=== PATIENT | female | born 1965 | race Caucasian/White ===

== ENCOUNTER 2021-05-23 13:41 | Outpatient (CLI) | payer OTHER ==
[2021-05-23 23:49] LABS: SARS-CoV-2 PCR by NAA Not Detected (NotDetected)
== END 2021-05-23 13:42 | disposition home or self-care (01) ==
LOC: CSHLAB 13:41
PROVIDERS: ATTEND Internal Medicine Critical Care Medicine
DX: Z20.822 Contact with and (suspected) exposure to COVID-19 (principal)
CPT/HCPCS: U0003; U0005

== ENCOUNTER 2021-07-14 19:57 | Inpatient (IN) | payer OTHER ==
[2021-07-14 20:41] LABS: #Eosinphils 0.2 10x3/uL (0.0-0.5); #Monocytes 0.5 10x3/uL (0.0-1.1); #Neutrophils 6.9 10x3/uL (1.5-8.4); %Basophils 0.4 % (0.0-2.0); %Lymphocytes 17.3 % (18.0-47.0); %Monocytes 5.7 % (0.0-10.0); %Neutrophils 74.4 % (40.0-75.0); Hemoglobin 14.2 g/dL (12.0-15.5); Mean Corpuscular HGB CONC 31.3 g/dL (32.0-36.0); Mean Corpuscular Hemoglobin 29.8 pg (27.0-33.0); Mean Platelet Volume 7.8 fl (7.4-10.4); Platelet Count 374 10x3/uL (150-450); RBC Distribution Width 13.1 % (11.5-14.5); Red Blood Cell (RBC) Count 4.77 10x6/uL (3.90-5.03); White Blood Cell (WBC) Count 9.2 10x3/uL (3.5-10.5)
[2021-07-14] MEDS ORDERED: Dexamethasone 10 MG/ML VIAL ONE (20:53)
[2021-07-14 20:54] LABS: ALT (SGPT) 10 U/L (8-55); AST (SGOT) 16 U/L (5-34); Albumin 3.8 g/dL (3.5-5.0); Alkaline Phosphatase 96 U/L (40-110); Anion Gap 15 mmol/L (10-20); BUN (Urea Nitrogen) 8 mg/dL (9.8-20.1); Bilirubin, Total 0.4 mg/dL (0.2-1.2); Calc. Creatinine Clearance 0 mL/min (70-130); Calcium 9.3 mg/dL (7.8-10.44); Carbon Dioxide 31 mmol/L (22-29); Chloride 102 mmol/L (98-107); Globulin 3.1 g/dL (2.4-3.5); Glucose 102 mg/dL (70-105); Potassium 4.2 mmol/L (3.5-5.1); Protein, Total 6.9 g/dL (6.0-8.3); Sodium 144 mmol/L (136-145)
[2021-07-14] MEDS ORDERED: Magnesium 2 GM/50 ML BAG (IN WATER) ONE (20:54)
[2021-07-14 21:25] LABS: SARS-CoV-2 NAA Rapid Test Not Detected (NotDetected)
[2021-07-14 22:14] LABS: Actual Bicarbonate (HCO3v) 31 mEq/L (22-28); Base Excess 2.5 mEq/L (-2.0 to +3.0); Calcium, Ionized (venous) 1.12 mmol/L (1.16-1.32); Chloride (VBG) 103 mmol/L (98-106); Hemoglobin (Hb) 14.5 g/dL (11.7-16.0); Potassium (VBG) 4.19 mmol/L (3.70-5.30); Puncture Site Other Site; RapidComm Collect By CSUC.CNC; Sodium 140.2 mmol/L (133-146); pH (venous) 7.31 (7.32-7.43)
[2021-07-14] MEDS ORDERED: Azithromycin 500 MG VIAL ONE (22:33)
[2021-07-14] MEDS ORDERED: cefTRIAXone\\ROCEPHIN 2 GM VIAL ONE (22:33)
[2021-07-14 23:27] LABS: Actual Bicarbonate (HCO3a) 26.8 mEq/L (22-28); Base Excess (BEa) 0.3 mEq/L (-2.0 to +3.0); CO2 Tension 50.2 mmHg (35.0-45.0); Calcium, Ionized (arterial) 1.18 mmol/L (1.12-1.30); Carboxyhemoglobin (COHb) 1.2 gm% (0.0-3.0); Hemoglobin (Hb) 14.6 g/dL (12.0-16.0); O2 Tension (PaO2), arterial 72.8 mmHg (80.0-100.0); Potassium - ABG Lab 4.2 mmol/L (3.70-5.30); Puncture Site RRA; pH, Arterial 7.35 (7.35-7.45)
[2021-07-15] MEDS ORDERED: Morphine 4 MG/ML VIAL ONE (00:38)
[2021-07-15 00:44] LABS: Troponin I 0.021 ng/mL (< 0.028)
[2021-07-15 01:33] VITALS: BMI 55.5
[2021-07-15 03:42] LABS: Troponin I Less than 0.010 ng/mL (< 0.028)
[2021-07-15] MEDS: methylPREDNISolone Sod Succ 40 MG VIAL IVP SCH ×4 (05:26→23:40)
[2021-07-15] MEDS: Sodium Chloride 0.9% 1,000 ML IV SCH ×2 (05:31→17:21)
[2021-07-15] MEDS: Budesonide 0.25 MG/2 ML NEB INH SCH ×2 (05:45→19:55)
[2021-07-15] MEDS: Arformoterol 15 MCG/2 ML NEB NEB SCH ×2 (05:45→19:55)
[2021-07-15 06:02] LABS: #Monocytes 0.2 10x3/uL (0.0-1.1); #Neutrophils 7.5 10x3/uL (1.5-8.4); %Basophils 0.2 % (0.0-2.0); %Lymphocytes 10.3 % (18.0-47.0); %Monocytes 2.2 % (0.0-10.0); %Neutrophils 86.8 % (40.0-75.0); Hemoglobin 13.6 g/dL (12.0-15.5); Mean Corpuscular HGB CONC 31.9 g/dL (32.0-36.0); Mean Corpuscular Hemoglobin 29.9 pg (27.0-33.0); Mean Corpuscular Volume 93.8 fl (81.6-98.3); Mean Platelet Volume 8.2 fl (7.4-10.4); Platelet Count 386 10x3/uL (150-450); RBC Distribution Width 13.2 % (11.5-14.5); Red Blood Cell (RBC) Count 4.55 10x6/uL (3.90-5.03); White Blood Cell (WBC) Count 8.6 10x3/uL (3.5-10.5)
[2021-07-15 06:16] LABS: Actual Bicarbonate (HCO3a) 25.8 mEq/L (22-28); Base Excess (BEa) 0.1 mEq/L (-2.0 to +3.0); CO2 Tension 45.7 mmHg (35.0-45.0); Calcium, Ionized (arterial) 1.19 mmol/L (1.12-1.30); Carboxyhemoglobin (COHb) 1.3 gm% (0.0-3.0); Hemoglobin (Hb) 13.7 g/dL (12.0-16.0); O2 Tension (PaO2), arterial 64.2 mmHg (80.0-100.0); Potassium - ABG Lab 4.4 mmol/L (3.70-5.30); Puncture Site RRA; pH, Arterial 7.37 (7.35-7.45)
[2021-07-15 07:31] LABS: Anion Gap 17 mmol/L (10-20); BUN (Urea Nitrogen) 10 mg/dL (9.8-20.1); Calc. Creatinine Clearance 197 mL/min (70-130); Calcium 8.8 mg/dL (7.8-10.44); Carbon Dioxide 28 mmol/L (22-29); Chloride 103 mmol/L (98-107); Glucose 149 mg/dL (70-105); Magnesium 2.3 mg/dL (1.6-2.6); Potassium 4.6 mmol/L (3.5-5.1); Sodium 143 mmol/L (136-145)
[2021-07-15] MEDS: Gabapentin 300 MG CAP PO SCH ×3 (09:13→20:36)
[2021-07-15] MEDS: Aspirin 81 mg Enteric Coated Tablet PO SCH (09:14)
[2021-07-15] MEDS: Enoxaparin Sodium 40 MG/0.4 ML SYRINGE SC SCH (09:14)
[2021-07-15] MEDS: Atorvastatin Calcium 10 MG TAB PO SCH (09:22)
[2021-07-15 14:04] LABS: ALV-art Gradient 106.835 mmHg (0-20)
[2021-07-15] MEDS: HYDROcodone/Acetaminophen 10/325 mg Tablet PO PRN ×2 (14:29→20:38)
[2021-07-15] MEDS: ALPRAZolam 0.5 MG TAB PO SCH (20:36)
[2021-07-15] MEDS: traZODone HCl 50 MG TAB PO SCH (20:37)
[2021-07-15] MEDS: Nystatin Powder 15 GM BOT TOP SCH (20:37)
[2021-07-15] MEDS: cefTRIAXone\\ROCEPHIN 2 GM in Sodium Chloride 0.9% 100 ML IVPB SCH (21:21)
[2021-07-15] MEDS: Azithromycin 500 MG in Sodium Chloride 0.9% 250 ML 250 ML IVPB SCH (23:40)
[2021-07-16] MEDS: methylPREDNISolone Sod Succ 40 MG VIAL IVP SCH ×3 (06:04→17:11)
[2021-07-16] MEDS: Budesonide 0.25 MG/2 ML NEB INH SCH ×2 (07:30→20:42)
[2021-07-16] MEDS: Arformoterol 15 MCG/2 ML NEB NEB SCH ×2 (07:40→20:41)
[2021-07-16 08:38] LABS: #Monocytes 0.3 10x3/uL (0.0-1.1); #Neutrophils 11.4 10x3/uL (1.5-8.4); %Basophils 0.1 % (0.0-2.0); %Eosinophils 0.2 % (0.0-6.0); %Lymphocytes 7.2 % (18.0-47.0); %Monocytes 2.1 % (0.0-10.0); %Neutrophils 89.7 % (40.0-75.0); Hemoglobin 13.6 g/dL (12.0-15.5); Mean Corpuscular HGB CONC 33.2 g/dL (32.0-36.0); Mean Corpuscular Volume 90.3 fl (81.6-98.3); Mean Platelet Volume 8.4 fl (7.4-10.4); Platelet Count 402 10x3/uL (150-450); RBC Distribution Width 13.2 % (11.5-14.5); Red Blood Cell (RBC) Count 4.54 10x6/uL (3.90-5.03); White Blood Cell (WBC) Count 12.5 10x3/uL (3.5-10.5)
[2021-07-16 08:48] LABS: Anion Gap 15 mmol/L (10-20); BUN (Urea Nitrogen) 13 mg/dL (9.8-20.1); Calc. Creatinine Clearance 202 mL/min (70-130); Carbon Dioxide 23 mmol/L (22-29); Chloride 105 mmol/L (98-107); Glucose 136 mg/dL (70-105); Potassium 4.4 mmol/L (3.5-5.1); Sodium 139 mmol/L (136-145)
[2021-07-16] MEDS: Aspirin 81 mg Enteric Coated Tablet PO SCH (09:38)
[2021-07-16] MEDS: HYDROcodone/Acetaminophen 10/325 mg Tablet PO PRN ×3 (09:38→21:45)
[2021-07-16] MEDS: Enoxaparin Sodium 40 MG/0.4 ML SYRINGE SC SCH (09:38)
[2021-07-16] MEDS: Atorvastatin Calcium 10 MG TAB PO SCH (09:39)
[2021-07-16] MEDS: Nystatin Powder 15 GM BOT TOP SCH ×2 (09:39→21:23)
[2021-07-16] MEDS: Gabapentin 300 MG CAP PO SCH ×3 (09:39→21:21)
[2021-07-16] MEDS: cefTRIAXone\\ROCEPHIN 2 GM in Sodium Chloride 0.9% 100 ML IVPB SCH (21:20)
[2021-07-16] MEDS: traZODone HCl 50 MG TAB PO SCH (21:21)
[2021-07-16] MEDS: ALPRAZolam 0.5 MG TAB PO SCH (21:22)
[2021-07-17] MEDS: methylPREDNISolone Sod Succ 40 MG VIAL IVP SCH ×5 (00:51→23:04)
[2021-07-17] MEDS: Azithromycin 500 MG in Sodium Chloride 0.9% 250 ML 250 ML IVPB SCH ×2 (00:51→23:03)
[2021-07-17] MEDS: HYDROcodone/Acetaminophen 10/325 mg Tablet PO PRN ×4 (04:29→23:04)
[2021-07-17 04:48] LABS: Anion Gap 16 mmol/L (10-20); BUN (Urea Nitrogen) 20 mg/dL (9.8-20.1); Calc. Creatinine Clearance 192 mL/min (70-130); Calcium 8.6 mg/dL (7.8-10.44); Carbon Dioxide 23 mmol/L (22-29); Chloride 104 mmol/L (98-107); Glucose 153 mg/dL (70-105); Potassium 4.1 mmol/L (3.5-5.1); Sodium 139 mmol/L (136-145)
[2021-07-17] MEDS: Budesonide 0.25 MG/2 ML NEB INH SCH ×2 (05:54→19:16)
[2021-07-17] MEDS: Arformoterol 15 MCG/2 ML NEB NEB SCH ×2 (05:54→19:16)
[2021-07-17] MEDS: Enoxaparin Sodium 40 MG/0.4 ML SYRINGE SC SCH (09:24)
[2021-07-17] MEDS: Gabapentin 300 MG CAP PO SCH ×3 (09:24→20:56)
[2021-07-17] MEDS: Aspirin 81 mg Enteric Coated Tablet PO SCH (09:25)
[2021-07-17] MEDS: Atorvastatin Calcium 10 MG TAB PO SCH (09:26)
[2021-07-17] MEDS: Nystatin Powder 15 GM BOT TOP SCH ×2 (09:26→20:57)
[2021-07-17] MEDS ORDERED: Budesonide 0.5 MG/2 ML NEB ONE (19:16)
[2021-07-17] MEDS: ALPRAZolam 0.5 MG TAB PO SCH (20:56)
[2021-07-17] MEDS: cefTRIAXone\\ROCEPHIN 2 GM in Sodium Chloride 0.9% 100 ML IVPB SCH (20:57)
[2021-07-17] MEDS: traZODone HCl 50 MG TAB PO SCH (20:57)
[2021-07-17] MEDS ORDERED: Sodium Chloride 0.9% 250 ML 250 ML ONE (23:04)
[2021-07-18] MEDS: methylPREDNISolone Sod Succ 40 MG VIAL IVP SCH ×2 (05:08→13:06)
[2021-07-18] MEDS: HYDROcodone/Acetaminophen 10/325 mg Tablet PO PRN ×2 (05:11→10:41)
[2021-07-18] MEDS: Arformoterol 15 MCG/2 ML NEB NEB SCH (07:10)
[2021-07-18] MEDS: Gabapentin 300 MG CAP PO SCH ×2 (10:31→15:30)
[2021-07-18] MEDS: Aspirin 81 mg Enteric Coated Tablet PO SCH (10:31)
[2021-07-18] MEDS: Enoxaparin Sodium 40 MG/0.4 ML SYRINGE SC SCH (10:33)
[2021-07-18] MEDS: Nystatin Powder 15 GM BOT TOP SCH (10:34)
[2021-07-18] MEDS: Atorvastatin Calcium 10 MG TAB PO SCH (10:34)
[2021-07-18] MEDS: Budesonide 0.25 MG/2 ML NEB INH SCH (11:00)
[2021-07-18 12:36] VITALS: BP 139/67; TEMP 98.7
== END 2021-07-18 15:42 | disposition home or self-care (01) | DRG 193 ==
LOC: CSHERS 19:57 → CSHTELE 23:50 → UNDOADMIN 07-15 00:54
PROVIDERS: ADMIT Family Medicine; ATTEND Internal Medicine
DX: J18.9 Pneumonia, unspecified organism (principal); J96.21 Acute and chronic respiratory failure with hypoxia; J96.22 Acute and chronic respiratory failure with hypercapnia; J44.1 Chronic obstructive pulmonary disease with (acute) exacerbation; E66.2 Morbid (severe) obesity with alveolar hypoventilation; N39.0 Urinary tract infection, site not specified; Z68.43 Body mass index [BMI] 50.0-59.9, adult; Z20.822 Contact with and (suspected) exposure to COVID-19; F17.210 Nicotine dependence, cigarettes, uncomplicated; E66.9 Obesity, unspecified; F43.10 Post-traumatic stress disorder, unspecified; F32.A Depression, unspecified; F41.9 Anxiety disorder, unspecified; I34.1 Nonrheumatic mitral (valve) prolapse; G89.29 Other chronic pain; M54.9 Dorsalgia, unspecified; Z86.73 Personal history of transient ischemic attack (TIA), and cerebral infarction without residual deficits; Z99.81 Dependence on supplemental oxygen; Z79.899 Other long term (current) drug therapy; Z79.82 Long term (current) use of aspirin
CPT/HCPCS: 36415; 36600; 70450; 71045; 80048; 80053; 82805; 83605; 83735; 83880; 84484; 85025; 87040; 93005; 94640; 94660; 94760; 96374; 96375; J0456; J0696; J1100; J1650; J2270; J2920; J3475; J3490; J7050; J7620; J7626